=== PATIENT | male | born 1945 | race Caucasian/White ===

== ENCOUNTER → 2017-12-22 06:44 | Day surgery (SDC) | payer MEDICARE ==
[~2017-12-22 06:44] MED LIST: Clopidogrel TAB* 300 MG ONE; Flumazenil* 0.1 MG/ML 5 ML MDV ONE; Heparin 2 UNITS/ML IVPREMIX* 2,000 ML IV ONE; Heparin(*) 1000 UNIT/ML 10 ML VIAL CATH LAB IV ONE; Iodixanol* (CONTRAST) 320 MG/ML 100 ML SDV ONE; Iohexol 350 (CONTRAST) 200 ML MDV IV ONE; LORazepam TAB(*) 1 MG ONE; LORazepam TAB(*) 1 MG PO ONE; Lidocaine 1% INJ* 10 MG/ML 30 ML SDV ONE; Metoprolol Tartrate IV* 1 MG/ML 5 ML VIAL ONE; Midazolam* 1 MG/ML 5 ML VIAL (5 MG) ONE; Naloxone* 0.4 MG/ML 1 ML VIAL ONE; ceFAZolin 1 GM* X ONE DOSE (AddVan) IVPB; fentaNYL* 50 MCG/ML 2 ML VIAL (100 MCG VIAL) ONE; nitroGLYCERIN DRIP* 25,000 MCG/250 ML BTL ONE
[2017-12-22 07:59] LABS: ABS Basophils 0 10^3/ul (0-0.2); ABS Eosinophils 0.5 10^3/ul (0-0.6); ABS Lymphocytes 1.9 10^3/ul (1.0-4.8); ABS Monocytes 0.5 10^3/ul (0-0.8); ABS Nucleated RBC 0 10^3/ul; Hematocrit 39 % (42-52); Hemoglobin 13.2 g/dl (14.0-18.0); Lymphocyte % 30.9 % (25-47); Mean Corpuscular HGB Conc 34 g/dl (31-36); Mean Corpuscular Hemoglobin 29 pg (27-31); Mean Corpuscular Volume 85 fL (80-94); Mean Platelet Volume 7.2 um3 (7.4-10.4); Nucleated Red Blood Cells % 0.2; Platelet Count 214 10^3/ul (150-450); Red Blood Count 4.64 10^6/ul (4.00-5.40); Red Cell Distribution Width 15 % (10.5-15)
[2017-12-22 08:05] LABS: INR 0.99 (0.77-1.02)
[2017-12-22 08:18] LABS: EGFR Non-African American 86.9 (>60)
[2017-12-22 14:14] VITALS: BP 126/71
--- NOTE | 2017-12-22 15:46 | PN ---
Progress Note - Progress Note Date of Service: 12/22/17 SOAP: Subjective: Patient denies pain or nausea. States his left foot feels "warm and the numbness is gone". Domingo pain at left groin. 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 Percuteneous Minx closure device successfully deployed at left DEBT COLLECTION SPECIALIST. Plan: 1. Plavix 75 mg PO daily x 6 months (patient received 300 mg loading dose today) . 2. ASA 81 mg PO daily. 3. Routine Interventional Follow Up will include RN clinic call 12/25/17 and clinic follow up & PHILIPPE in ~1 month.
--- NOTE | 2017-12-22 19:10 | RAD ---
CPT II Codes: G9500 Procedure(s) performed: 1. Diagnostic left lower extremity arteriogram from an ipsilateral antegrade left common femoral arteriotomy. 2. Catheter and wire revascularization of occluded distal SFA /popliteal artery. 3. Balloon angioplasty of the left superficial femoral artery, popliteal artery, tibioperoneal trunk and left anterior tibial artery. 4. Percutaneous Minx closure device deployed at the left common femoral arteriotomy. Date of service: December 22, 2017 Indication for procedure: Left lower extremity claudication. Comparison: Most recent PHILIPPE is dated October 11, 2017. Also reviewed where angiographic images from October 28, 2016 when the patient underwent revascularization, atherectomy and balloon angioplasty of the occluded left SFA and popliteal artery. Contrast: 105 mL of Visipaque 320 Fluoroscopy Time: 23.9 minutes Vessels Accessed: Percutaneous access was obtained with ultrasound guidance in the left common femoral artery in the antegrade direction towards the foot. Catheter arteriography, with the catheter tip located within the lumen of the following arteries, was performed at the left common femoral artery, left superficial femoral artery and left popliteal artery. Anesthesia: Conscious sedation with IV Fentanyl and Versed as well as local 1% lidocaine injected locally at the arteriotomy site. Conscious sedation time: Timeout: 0904 hours Case end: 1135 hours Total conscious sedation time: 2 hours and 31 minutes Additional medications: * 700 mcg IA nitroglycerin injected intermittently throughout the course of the procedure to alleviate arterial spasm. * IV heparin 5000 Units to achieve a goal ACT of 250-300. * The patient received 1 mg of p.o. Ativan prior to the onset of the procedure. PROCEDURE NOTE AND INTRAPROCEDURAL IMAGING FINDINGS: Immediately prior to the procedure the patient signed consent after thoroughly discussing all risks, benefits and alternative therapies. The patient was positioned on the fluoroscopy table in the supine position and the bilateral groins and left foot were shaved, prepped and the patient was draped in standard sterile fashion. Using fluoroscopic imaging the location of the left common femoral head was marked externally with a skin marker on the patient's groin. Utilizing sonographic guidance and palpation, the left common femoral artery was cannulated overlying the femoral head with a 21-gauge needle. An ultrasound image was saved. A microwire was slowly and smoothly advanced into the common femoral artery and into the proximal left superficial femoral artery under fluoroscopic imaging. No buckling of the wire was visualized to indicate dissection. With the wire securing percutaneous arterial access, the needle was removed and a 5-Mexican catheter was advanced into the left superficial femoral artery. To further characterize and exactly locate the extent of atherosclerotic disease involving the left lower extremity diagnostic catheter arteriography was necessary. Through the 5-Mexican catheter contrast arteriography demonstrated appropriate arteriotomy in the left common femoral artery below the inferior gastric artery and above the femoral bifurcation. The femoral profundus is adequately patent. There are mild stenoses in the proximal left superficial femoral artery. Through the catheter a 0.035 inch Bentson wire was advanced into the superficial femoral artery. The 5-Mexican sheath was removed and exchanged for a 5-Mexican SideArm access sheath which was advanced until the tip terminated at the left superficial femoral artery proximally. Contrast arteriography of the upper left superficial femoral artery shows multiple stenoses in the proximal half of the left SFA. The Bentson wire was reinserted and a catheter was advanced to the more distal left superficial femoral artery. Contrast arteriography demonstrated increasingly severe stenoses in the distal left superficial femoral artery and proximal left popliteal artery. There is reconstituted filling of the distal left popliteal artery from the geniculate arteries and other branch intramuscular arteries. More distally the infrapopliteal arteries appear to be adequately patent. Utilizing a combination of a 5-Mexican curved tip catheter and a hydrophilic wire the occlusion was crossed. Access was obtained with the wire advanced to the tibioperoneal trunk. Contrast arteriography with the 5-Mexican catheter in the popliteal artery was performed demonstrating long segment narrowing of the left popliteal artery but with in-line flow into the proximal infrapopliteal arteries. There is focal stenosis at the proximal most portion of the left anterior tibial artery. Arteriography of the distal left lower leg and foot was performed demonstrating the MANAGER [employer] to be the dominant arterial supply to the foot supplemented by the peroneal artery. The distal left anterior tibial artery fills by collateralized flow. The pedal loop appears to be intact. A 0.014 inch microwire was advanced into the mid-level left peroneal artery securing access across the occluded distal left SFA and popliteal artery. Balloon angioplasty over the wire began with a 2 mm x 40 mm Passeo-14 balloon. This balloon was removed and replaced with a 5 mm x 120 mm Passeo-14 balloon which was slowly inflated just below burst pressure corresponding to an approximate diameter measurement of 5.2 mm. Essentially the entire length of the left superficial femoral artery and popliteal artery was angioplastied with this 5 mm balloon. The access sheath was drawn back until the tip was in the left common femoral artery so that balloon angioplasty could be performed across the ostium of the left superficial femoral artery. During each inflation the balloon remained inflated for minimum of 3 minutes to address vasospasm. An arteriogram performed from the access sheath with the tip in the proximal left superficial femoral artery showed brisk flow through the entire SFA into the popliteal artery and the infrapopliteal arteries. Again seen is focal stenosis at the origin of the left anterior tibial artery. Utilizing a combination of a curved tip catheter and the microwire the proximal left anterior tibial artery was cannulated. Over the wire a 4 mm x 80 mm Passeo-18 balloon was advanced and balloon angioplasty was performed at the proximal left anterior tibial artery spanning the ostium of the MASON and the distal most popliteal artery. The balloon remained inflated for a total of 3 minutes at nominal pressure corresponding to a diameter measurement of 4 mm. Subsequent arteriogram showed brisk flow through the popliteal artery and recently angioplastied anterior tibial artery. A catheter was reinserted over the microwire and exchange for a 260 length 0.035 inch [employer] wire. The wire was advanced under fluoroscopic control to approximately the mid-level peroneal artery. To increase the likelihood of the previously occluded distal left SFA and popliteal artery remaining patent a 5 mm x 120 mm paclitaxel coated InPact balloon was advanced to the previously occluded distal SFA and popliteal artery and balloon angioplasty was performed. The balloon was inflated just below burst pressure corresponding to a diameter measurement of 5.5 mm. The balloon remained inflated for 4 minutes to ensure adequate drug delivery to the endothelium and to address vasospasm. Final arteriogram showed adequate patency through the SFA and popliteal artery. Through the side arm of the access sheath arteriography of the left common femoral artery demonstrated an appropriate puncture of the common femoral artery above the bifurcation and below the inferior epigastric artery. After an appropriate resterilization of the arteriotomy and exchange for new sterile gloves, a Minx closure device was deployed at the common femoral arteriotomy and pressure held for approximately 15 minutes. There were no signs of bleeding at the percutaneous arterial access site and the site was dressed with sterile gauze and Tegaderm. The patient tolerated the procedure well and was transferred to angiography holding bay for standard post procedural observation. SUMMARY OF PROCEDURE, IMAGING FINDINGS AND INTERVENTIONS PERFORMED: 1. Diagnostic studies performed: * Arterial access was obtained at the left common femoral artery in the antegrade direction (i.e. towards the foot) with ultrasound guidance. A sonographic image was recorded. * Diagnostic catheter angiography (necessary to perform the appropriate interventions) was performed with the catheter tip in the left common femoral artery, left superficial femoral artery and left popliteal artery. * Catheter arteriography was performed of the all arteries of the left lower extremity from the left external iliac artery to the left forefoot. * At the conclusion of the procedure arteriography was performed through the side arm of the access sheath to image the distal left external iliac artery, left common femoral artery and proximal superficial femoral artery and femoral profundus. 2. Interpretation of diagnostic studies performed: * Reocclusion of the distal left superficial femoral artery and popliteal artery with reconstituted filling of the more distal left popliteal artery and infrapopliteal arteries. * Long segment and multifocal stenoses of the left superficial femoral artery up to the proximal third of the artery. * High-grade stenosis at the origin of the left anterior tibial artery including the ostium. * Arteriography performed for the purpose of deploying a percutaneous arterial closure device demonstrates adequately patent left external iliac artery, common femoral artery and proximal superficial femoral artery and femoral profundus. 3. Surgical interventions performed: * Catheter wire revascularization of the occluded distal left SFA and popliteal artery. * Serial balloon angioplasty of the previously occluded left distal SFA and popliteal artery culminating with balloon angioplasty with a 5 mm x 120 mm paclitaxel coated InPact balloon. The balloon was inflated just below burst pressure corresponding to a diameter of 5.4 mm. * Balloon angioplasty of essentially the entire length of the left superficial femoral artery utilizing a 5 mm x 120 mm Passeo-18. The balloon was inflated just below burst pressure corresponding to a diameter measurement of 5.2 mm. * Balloon angioplasty of the proximal left anterior tibial artery with a 4 mm x 80 mm Passeo-18 balloon. * Closure of the left common femoral artery was achieved with a Minx closure device followed by 15 minutes of gentle manual pressure. 4. Interpretation of interventions performed: * Final arteriography demonstrated brisk in-line flow from the left common femoral artery through the previously stenotic and/or occluded left SFA and popliteal arteries into the upper left infrapopliteal arteries. Plan: 1. Aspirin 81 mg p.o. daily for life. 2. Plavix 75 mg p.o. daily x 6 months. 3. Clinical and imaging follow-up according to standard Interventional Radiology protocol.
== END | disposition home or self-care (01) ==
LOC: CHICATH 06:44
PROVIDERS: ATTEND Radiology Diagnostic Radiology
DX: I70.212 Atherosclerosis of native arteries of extremities with intermittent claudication, left leg (principal); I65.29 Occlusion and stenosis of unspecified carotid artery; I25.10 Atherosclerotic heart disease of native coronary artery without angina pectoris; E11.9 Type 2 diabetes mellitus without complications; I05.9 Rheumatic mitral valve disease, unspecified; Z95.810 Presence of automatic (implantable) cardiac defibrillator; Z79.01 Long term (current) use of anticoagulants
CPT/HCPCS: 36415; 76937; 80048; 85025; 85347; 85610; 85730; 99156; 99157; A9270-GY; C1725; C1760; C1769; C1887; C1894; J0690; J1644; J2250; J2310; J3010; J3490

== ENCOUNTER 2022-04-04 08:04 | Inpatient (IN) ==
[2022-04-04 09:29] LABS: ABS Basophils 0.1 10^3/ul (0-0.2); ABS Eosinophils 0.3 10^3/ul (0-0.6); ABS Lymphocytes 1.1 10^3/ul (1.0-4.8); ABS Monocytes 0.4 10^3/ul (0-0.8); ABS Neutrophils 6.1 10^3/ul (1.5-7.7); Eosinophil % 3.7 %; Hematocrit 46 % (42-52); Hemoglobin 15.1 g/dL (14.0-18.0); Lymphocyte % 14.3 %; Mean Corpuscular HGB Conc 33 g/dL (31-36); Mean Corpuscular Hemoglobin 28 pg (27-31); Mean Corpuscular Volume 86 fL (80-94); Mean Platelet Volume 7.4 fL (7.4-10.4); Nucleated Red Blood Cells % 0.1; Platelet Count 392 10^3/uL (150-450); Red Blood Count 5.37 10^6 /uL (4.18-5.48); Red Cell Distribution Width 16 % (10-15)
[2022-04-04 09:52] LABS: INR 1.26 (0.88-1.18)
[2022-04-04 10:08] LABS: Albumin/Globulin Ratio 1.1 (1-3); C Reactive Protein 16.33 mg/L (<8.01); Calcium 9.1 mg/dL (8.6-10.3); Globulin 3.8 g/dL (2-4); Total Bilirubin 1.2 mg/dL (0.2-1.0); Total Protein 7.8 g/dL (6.4-8.9); eGFR CKD-EPI 75.2 (>60)
[2022-04-04 10:46] LABS: Potassium 4.9 mmol/L (3.5-5.0)
[2022-04-04 11:12] LABS: High Sensitivity Troponin 1 Hr 11 pg/mL (<20)
[2022-04-04] MEDS ORDERED: Remdesivir 100 mg Vial 200 MG in NS 0.9% 250 ml 210 ML IV ONE (11:25)
[2022-04-04] MEDS ORDERED: Dextrose 50% Syringe 50 ml 25 GM/50 ML SYRINGE IV PUSH PRN (13:24)
[2022-04-04] MEDS: Enoxaparin 40 MG/0.4 ML SYR SUBCUT SCH (13:59)
[2022-04-05 06:25] LABS: Hematocrit 39 % (42-52); Hemoglobin 12.6 g/dL (14.0-18.0); Mean Corpuscular HGB Conc 33 g/dL (31-36); Mean Corpuscular Hemoglobin 28 pg (27-31); Mean Corpuscular Volume 86 fL (80-94); Mean Platelet Volume 7.6 fL (7.4-10.4); Platelet Count 412 10^3/uL (150-450); Red Blood Count 4.49 10^6 /uL (4.18-5.48); Red Cell Distribution Width 16 % (10-15); White Blood Count 9.7 10^3/uL (3.5-10.8)
[2022-04-05 06:29] LABS: INR 1.25 (0.88-1.18)
[2022-04-05 07:02] LABS: Albumin 3.8 g/dL (3.2-5.2); Albumin/Globulin Ratio 1.3 (1-3); Calcium 8.9 mg/dL (8.6-10.3); Potassium 4.6 mmol/L (3.5-5.0); Total Bilirubin 0.7 mg/dL (0.2-1.0); Total Protein 6.8 g/dL (6.4-8.9); eGFR CKD-EPI 88.6 (>60)
[2022-04-05] MEDS: Remdesivir 100 mg Vial 100 MG in NS 0.9% 250 ml 230 ML IV SCH (08:27)
[2022-04-05] MEDS: Enoxaparin 40 MG/0.4 ML SYR SUBCUT SCH (12:22)
[2022-04-06 07:12] LABS: Hematocrit 35 % (42-52); Hemoglobin 11.7 g/dL (14.0-18.0); Mean Corpuscular HGB Conc 34 g/dL (31-36); Mean Corpuscular Hemoglobin 28 pg (27-31); Mean Corpuscular Volume 84 fL (80-94); Mean Platelet Volume 7.2 fL (7.4-10.4); Platelet Count 350 10^3/uL (150-450); Red Blood Count 4.15 10^6 /uL (4.18-5.48); Red Cell Distribution Width 16 % (10-15); White Blood Count 10.1 10^3/uL (3.5-10.8)
[2022-04-06 07:18] LABS: INR 1.32 (0.88-1.18)
[2022-04-06 07:36] LABS: Albumin 3.6 g/dL (3.2-5.2); Albumin/Globulin Ratio 1.2 (1-3); Calcium 9.1 mg/dL (8.6-10.3); Globulin 2.9 g/dL (2-4); Potassium 4.6 mmol/L (3.5-5.0); Total Bilirubin 0.5 mg/dL (0.2-1.0); Total Protein 6.5 g/dL (6.4-8.9); eGFR CKD-EPI 93.1 (>60)
[2022-04-06] MEDS: Remdesivir 100 mg Vial 100 MG in NS 0.9% 250 ml 230 ML IV SCH (09:08)
[2022-04-06] MEDS: Enoxaparin 40 MG/0.4 ML SYR SUBCUT SCH (11:21)
[2022-04-07 07:13] LABS: INR 1.35 (0.88-1.18)
[2022-04-07 07:19] LABS: Hematocrit 36 % (42-52); Hemoglobin 12.1 g/dL (14.0-18.0); Mean Corpuscular HGB Conc 34 g/dL (31-36); Mean Corpuscular Hemoglobin 29 pg (27-31); Mean Corpuscular Volume 86 fL (80-94); Mean Platelet Volume 7.5 fL (7.4-10.4); Platelet Count 363 10^3/uL (150-450); Red Blood Count 4.18 10^6 /uL (4.18-5.48); Red Cell Distribution Width 16 % (10-15); White Blood Count 8.5 10^3/uL (3.5-10.8)
[2022-04-07 07:42] LABS: Albumin 3.6 g/dL (3.2-5.2); Albumin/Globulin Ratio 1.2 (1-3); Calcium 9.1 mg/dL (8.6-10.3); Magnesium 1.4 mg/dL (1.9-2.7); Potassium 4.6 mmol/L (3.5-5.0); Total Bilirubin 0.6 mg/dL (0.2-1.0); Total Protein 6.6 g/dL (6.4-8.9); eGFR CKD-EPI 96.4 (>60)
[2022-04-07] MEDS: Remdesivir 100 mg Vial 100 MG in NS 0.9% 250 ml 230 ML IV SCH (08:37)
[2022-04-07] MEDS ORDERED: Furosemide 20 mg/2 ml IV VIAL IV ONE (10:16)
[2022-04-07 10:43] VITALS: BP 134/69
[2022-04-07] MEDS: Enoxaparin 40 MG/0.4 ML SYR SUBCUT SCH (11:15)
== END 2022-04-07 16:15 | disposition home or self-care (01) | DRG 177 ==
LOC: ED 08:04 → EDHOLD 08:04 → SUATTDRO 11:21 → MED 13:40
PROVIDERS: ADMIT Internal Medicine; ATTEND Hospitalist

== ENCOUNTER 2022-05-28 09:07 | Inpatient (IN) ==
[2022-05-28 14:07] LABS: ABS Basophils 0.1 10^3/ul (0-0.2); ABS Eosinophils 0.3 10^3/ul (0-0.6); ABS Monocytes 0.8 10^3/ul (0-0.8); ABS Neutrophils 7.5 10^3/ul (1.5-7.7); Eosinophil % 2.4 %; Hematocrit 39 % (42-52); Hemoglobin 12.8 g/dL (14.0-18.0); Lymphocyte % 18.7 %; Mean Corpuscular HGB Conc 33 g/dL (31-36); Mean Corpuscular Hemoglobin 28 pg (27-31); Mean Corpuscular Volume 85 fL (80-94); Mean Platelet Volume 7.2 fL (7.4-10.4); Nucleated Red Blood Cells % 0.1; Platelet Count 396 10^3/uL (150-450); Red Blood Count 4.52 10^6 /uL (4.18-5.48); Red Cell Distribution Width 16 % (10-15); White Blood Count 10.7 10^3/uL (3.5-10.8)
[2022-05-28 14:38] LABS: Albumin 3.7 g/dL (3.2-5.2); Calcium 9.3 mg/dL (8.6-10.3); Potassium 4.9 mmol/L (3.5-5.0); Total Bilirubin 0.9 mg/dL (0.2-1.0)
[2022-05-28 14:44] LABS: Albumin/Globulin Ratio 1.2 (1-3); Creatinine, Serum 0.73 mg/dL (0.67-1.17); Globulin 3.2 g/dL (2-4); Total Protein 6.9 g/dL (6.4-8.9); eGFR CKD-EPI 93.1 (>60)
[2022-05-28] MEDS ORDERED: methylPREDNISolone SOD SUCC 125 mg 2 ML VIAL IV ONE (16:35)
[2022-05-28 18:59] LABS: C Reactive Protein 53.74 mg/L (<8.01)
[2022-05-28] MEDS ORDERED: Azithromycin 500 mg/250 ml NS 500 MG/250 ML BAG IVPB ONE (19:44)
[2022-05-28] MEDS ORDERED: Dextrose 50% Syringe 50 ml 25 GM/50 ML SYRINGE IV PUSH PRN (20:00)
[2022-05-28 20:22] LABS: Magnesium 1.6 mg/dL (1.9-2.7)
[2022-05-28] MEDS ORDERED: Magnesium Sulfate 2 gm BAG 2 GM/50 ML BAG IVPB ONE (21:21)
[2022-05-28] MEDS: Albuterol/Ipratropium NEB.SOL (2.5/0.5 MG) 3 ML NEB.SOLN INH SCH (23:17)
[2022-05-29] MEDS: Enoxaparin 40 MG/0.4 ML SYR SUBCUT SCH ×2 (00:10→21:29)
[2022-05-29] MEDS: methylPREDNISolone SOD SUCC 40 mg/ml 1 ml VIAL IV SCH ×4 (00:11→22:00)
[2022-05-29] MEDS: Fluticasone NASAL SPRAY 50MCG 16 gm SPRAY BTL INTRANASAL SCH ×3 (00:11→21:33)
[2022-05-29] MEDS: Nystatin SUSPENSION 100,000 UNITS/ML UDC PO SCH ×5 (00:12→21:31)
[2022-05-29] MEDS: Albuterol/Ipratropium NEB.SOL (2.5/0.5 MG) 3 ML NEB.SOLN INH SCH ×4 (02:51→19:21)
[2022-05-29 07:32] LABS: ABS Lymphocytes 0.8 10^3/ul (1.0-4.8); ABS Monocytes 0.1 10^3/ul (0-0.8); ABS Neutrophils 4.7 10^3/ul (1.5-7.7); Hematocrit 35 % (42-52); Hemoglobin 11.4 g/dL (14.0-18.0); Lymphocyte % 14.7 %; Mean Corpuscular HGB Conc 33 g/dL (31-36); Mean Corpuscular Hemoglobin 28 pg (27-31); Mean Corpuscular Volume 85 fL (80-94); Mean Platelet Volume 7.4 fL (7.4-10.4); Nucleated Red Blood Cells % 0.2; Platelet Count 346 10^3/uL (150-450); Red Blood Count 4.11 10^6 /uL (4.18-5.48); Red Cell Distribution Width 16 % (10-15); White Blood Count 5.6 10^3/uL (3.5-10.8)
[2022-05-29 07:49] LABS: Calcium 8.8 mg/dL (8.6-10.3); Creatinine, Serum 0.65 mg/dL (0.67-1.17); Potassium 4.5 mmol/L (3.5-5.0); eGFR CKD-EPI 96.4 (>60)
[2022-05-29] MEDS: Aspirin EC 81 mg TAB.EC (enteric coated) PO SCH (08:39)
[2022-05-30] MEDS: Albuterol/Ipratropium NEB.SOL (2.5/0.5 MG) 3 ML NEB.SOLN INH SCH ×4 (02:56→19:16)
[2022-05-30 07:18] LABS: ABS Monocytes 0.4 10^3/ul (0-0.8); ABS Neutrophils 11.6 10^3/ul (1.5-7.7); Hematocrit 33 % (42-52); Hemoglobin 11.2 g/dL (14.0-18.0); Lymphocyte % 7.6 %; Mean Corpuscular HGB Conc 34 g/dL (31-36); Mean Corpuscular Hemoglobin 29 pg (27-31); Mean Corpuscular Volume 84 fL (80-94); Mean Platelet Volume 7.3 fL (7.4-10.4); Platelet Count 396 10^3/uL (150-450); Red Blood Count 3.91 10^6 /uL (4.18-5.48); Red Cell Distribution Width 16 % (10-15)
[2022-05-30 07:29] LABS: Urine Appearance Clear; Urine Bilirubin Negative (Negative); Urine Blood Negative (Negative); Urine Color Straw; Urine Glucose 3+(>=500 mg/dL) (Negative); Urine Ketones Negative (Negative); Urine Nitrite Negative (Negative); Urine Protein Negative (Negative); Urine Specific Gravity 1.026 (1.002-1.030); Urine Urobilinogen Negative (Negative)
[2022-05-30 07:48] LABS: Calcium 9.2 mg/dL (8.6-10.3); Creatinine, Serum 0.78 mg/dL (0.67-1.17); HDL Cholesterol 29.8 mg/dL; Potassium 4.2 mmol/L (3.5-5.0); eGFR CKD-EPI 91.3 (>60)
[2022-05-30] MEDS: methylPREDNISolone SOD SUCC 40 mg/ml 1 ml VIAL IV SCH ×3 (08:31→23:46)
[2022-05-30] MEDS: Fluticasone NASAL SPRAY 50MCG 16 gm SPRAY BTL INTRANASAL SCH ×2 (08:32→20:45)
[2022-05-30] MEDS: Nystatin SUSPENSION 100,000 UNITS/ML UDC PO SCH ×4 (08:32→20:46)
[2022-05-30] MEDS: Aspirin EC 81 mg TAB.EC (enteric coated) PO SCH (08:32)
[2022-05-30] MEDS: Enoxaparin 40 MG/0.4 ML SYR SUBCUT SCH (19:51)
[2022-05-31] MEDS: Albuterol/Ipratropium NEB.SOL (2.5/0.5 MG) 3 ML NEB.SOLN INH SCH ×4 (01:32→19:10)
[2022-05-31] MEDS: Aspirin EC 81 mg TAB.EC (enteric coated) PO SCH (08:44)
[2022-05-31] MEDS: methylPREDNISolone SOD SUCC 40 mg/ml 1 ml VIAL IV SCH ×2 (08:44→16:42)
[2022-05-31] MEDS: Fluticasone NASAL SPRAY 50MCG 16 gm SPRAY BTL INTRANASAL SCH ×2 (08:44→20:23)
[2022-05-31] MEDS: Nystatin SUSPENSION 100,000 UNITS/ML UDC PO SCH ×4 (08:44→20:16)
[2022-05-31 09:41] LABS: ABS Lymphocytes 0.9 10^3/ul (1.0-4.8); ABS Monocytes 0.4 10^3/ul (0-0.8); ABS Neutrophils 9.4 10^3/ul (1.5-7.7); Hematocrit 34 % (42-52); Hemoglobin 11.1 g/dL (14.0-18.0); Lymphocyte % 8.6 %; Mean Corpuscular HGB Conc 33 g/dL (31-36); Mean Corpuscular Hemoglobin 28 pg (27-31); Mean Corpuscular Volume 85 fL (80-94); Mean Platelet Volume 7.3 fL (7.4-10.4); Platelet Count 378 10^3/uL (150-450); Red Blood Count 3.94 10^6 /uL (4.18-5.48); Red Cell Distribution Width 16 % (10-15); White Blood Count 10.8 10^3/uL (3.5-10.8)
[2022-05-31 10:30] LABS: Calcium 9.1 mg/dL (8.6-10.3); Creatinine, Serum 0.72 mg/dL (0.67-1.17); Potassium 4.6 mmol/L (3.5-5.0); eGFR CKD-EPI 93.5 (>60)
[2022-05-31 17:54] LABS: ABS Monocytes 0.5 10^3/ul (0-0.8); ABS Neutrophils 9.2 10^3/ul (1.5-7.7); Hematocrit 35 % (42-52); Hemoglobin 11.8 g/dL (14.0-18.0); Lymphocyte % 9.2 %; Mean Corpuscular HGB Conc 34 g/dL (31-36); Mean Corpuscular Hemoglobin 29 pg (27-31); Mean Corpuscular Volume 86 fL (80-94); Mean Platelet Volume 7.3 fL (7.4-10.4); Platelet Count 423 10^3/uL (150-450); Red Blood Count 4.08 10^6 /uL (4.18-5.48); Red Cell Distribution Width 16 % (10-15); White Blood Count 10.8 10^3/uL (3.5-10.8)
[2022-05-31 18:16] LABS: Calcium 9.6 mg/dL (8.6-10.3); Creatinine, Serum 0.8 mg/dL (0.67-1.17); eGFR CKD-EPI 90.6 (>60)
[2022-05-31] MEDS: Enoxaparin 40 MG/0.4 ML SYR SUBCUT SCH (20:15)
[2022-06-01] MEDS: Albuterol/Ipratropium NEB.SOL (2.5/0.5 MG) 3 ML NEB.SOLN INH SCH ×3 (01:16→13:02)
[2022-06-01] MEDS: Aspirin EC 81 mg TAB.EC (enteric coated) PO SCH (09:29)
[2022-06-01] MEDS: Nystatin SUSPENSION 100,000 UNITS/ML UDC PO SCH ×3 (09:32→17:24)
[2022-06-01] MEDS: Fluticasone NASAL SPRAY 50MCG 16 gm SPRAY BTL INTRANASAL SCH (09:37)
[2022-06-01 15:03] VITALS: BP 137/50
== END 2022-06-01 17:30 | disposition home or self-care (01) | DRG 196 ==
LOC: ED 09:07 → EDHOLD 19:14 → SUATTDRO 19:14 → MEDTELE 23:00
PROVIDERS: ADMIT Internal Medicine; ATTEND Internal Medicine